=== PATIENT | male | born 1985 | race Caucasian/White ===

== ENCOUNTER 2019-09-11 23:53 | Emergency (ER) | payer OTHER ==
[~2019-09-11] VITALS: Ht 182.9 cm; Wt 124.7 kg
[~2019-09-11 23:53] MED LIST: ALBU90OI INH; AZIT250 PO; CIPR500 PO; CLOMIPHENE; CYCL10 PO; Cleocin HCl300 MG PO; DOXY100 PO; HYDACE5 PO; HYDMOR8; IBUP800 PO; LEVFLO250 PO; LEVO750 PO; MUPI2TO TOP; NAPR500 PO; OXYC5; PERM5TC TOP; PROM25 PO; RANI150; RXCYCL10 PO; SULTRIDS PO; TRAM50 PO; [UNRECOGNIZED DRUG - OTHER]
[2019-09-12] MEDS ORDERED: VALACYCLOVIR500 MG PO (00:08)
[2019-09-12] MEDS ORDERED: DOXY100 (00:08)
[2019-09-12 02:14] LABS: Source, Urine Clean Catch
[2019-09-12 02:19] LABS: Appearance, Urine Clear (Clear); Bilirubin, Urine Neg (Neg); Blood, Urine 1+ (Neg); Color, Urine Amber (P-Yellow); Glucose Qualitative, Urine Neg (Neg); Ketones, Urine 1+ (Neg); Leukocyte Esterase, Urine 1+ (Neg); Nitrite, Urine Neg (Neg); Protein, Urine 2+ (Neg); Urobilinogen, Urine 1+ (Normal)
[2019-09-12 02:24] LABS: Bacteria Many /hpf; Mucus Mod (0-Heavy); Red Blood Cells, Urine 0-2 /hpf (0-2); Squamous Epithelial Cells Few /hpf (Few)
[2019-09-12] MEDS ORDERED: Cleocin HCl300 MG PO (02:36)
== END 2019-09-12 03:23 | disposition home or self-care (01) ==
LOC: ER 23:53
PROVIDERS: Physician Assistant
DX: N50.89 Other specified disorders of the male genital organs (principal); F17.200 Nicotine dependence, unspecified, uncomplicated; Z79.899 Other long term (current) drug therapy
CPT/HCPCS: 76870; 81001; 87086; 96365; 99284; A9270; A9270-GY; J1885

== ENCOUNTER → 2020-09-11 | Outpatient (CLI) | payer OTHER ==
[~2020-09-11] MED LIST changes: +DOXY100; +VALACYCLOVIR500 MG PO
[2020-09-13 17:22] LABS: CORONAVIRUS (COVID19) CSH-NRL Negative (Negative)
== END ==
LOC: LAB 18:41 → LAB SHORT 18:41
PROVIDERS: Chiropractor
DX: J02.9 Acute pharyngitis, unspecified (principal); Z20.828 Contact with and (suspected) exposure to other viral communicable diseases
CPT/HCPCS: U0003